=== PATIENT | female | born 1990 | race Two or more races ===

== ENCOUNTER 2022-01-10 10:37 | Emergency (ER) | payer MEDICAID ==
[~2022-01-10] VITALS: Ht 157.5 cm; Wt 56.2 kg
--- NOTE | 2022-01-10 10:48 | NUR ---
BIBFAMILY FOR LEFT PALM LACERATION FROM OPENING A CANNED FOOD NOT UPDTD WITH TETANUS SHOT. VITALS ARE WITHIN NORMAL LIMITS. AWAITING MD ORDERS.
[2022-01-10] MEDS ORDERED: LIDOCAINE 1% INJ 50 ML MDV IJ ONE ×2 (11:30→11:34)
[2022-01-10] MEDS ORDERED: BACI/NEOM/POLY B OINT PKT 1 UDPKT PACKET TP ONE (11:30)
[2022-01-10] MEDS ORDERED: TDAP [DIPH/PERTUSSIS/TET] 0.5 ML VIAL IM ONE ×2 (11:30→11:34)
--- NOTE | 2022-01-10 11:43 | NUR ---
DR LUEVANO AT BEDSIDE FOR LAC REPAIR
[2022-01-10] MEDS ORDERED: LIDOCAINE /MPF 1% VIAL 5 ML VIAL ONE (11:45)
[2022-01-10] MEDS ORDERED: BACITRACIN ZINC OINT PACKET 1 EA PACKET TP ONE (11:45)
[2022-01-10 12:37] VITALS: BP 112/77
--- NOTE | 2022-01-10 12:37 | NUR ---
Patient discharged to home in stable condition. Written and verbal after care instructions given. Patient verbalizes understanding of instruction.
== END 2022-01-10 12:38 | disposition home or self-care (01) ==
LOC: ER 10:37
DX: S61.412A Laceration without foreign body of left hand, initial encounter (principal); W26.0XXA Contact with knife, initial encounter; Y93.89 Activity, other specified; Y92.89 Other specified places as the place of occurrence of the external cause; Y99.8 Other external cause status
CPT/HCPCS: 99282; 12002; J3490 ×2; A6403 ×2; 90715

== ENCOUNTER 2022-02-23 12:02 | Emergency (ER) | payer MEDICAID ==
[~2022-02-23] VITALS: Ht 160 cm; Wt 59.0 kg
[2022-02-23 12:18] VITALS: BP 120/69
--- NOTE | 2022-02-23 12:35 | NUR ---
SUTURE REMOVAL DONE AT BEDSIDE; NO ACTIVE BLEEDING NOTED
--- NOTE | 2022-02-23 12:45 | NUR ---
Patient discharged to home in stable condition. Written and verbal after care instructions given. Patient verbalizes understanding of instruction.
== END 2022-02-23 12:46 | disposition home or self-care (01) ==
LOC: ER 12:02
DX: S61.012D Laceration without foreign body of left thumb without damage to nail, subsequent encounter (principal); W26.8XXD Contact with other sharp object(s), not elsewhere classified, subsequent encounter